=== PATIENT | female | born 1990 | race Caucasian/White ===

== ENCOUNTER 2017-02-15 11:50 | Emergency (ER) | payer OTHER ==
[~2017-02-15 11:50] MED LIST: ACETAMINOPHEN; AMBIEN PO; AMITRYPTYLINE PO; AMOXICILLIN PO; AMOXICILLIN500 M1 PO; ANXIETY MED; AUGMENTIN PO; BACTRIM DS TABL1 TA1 PO; BCP; BENADRYL25 M1 PO; BENZONATATE PO; CIPRO PO; CLARITIN10 MG PO; DEPO SHOT; E MYCIN OS; FLEXERIL10 MG PO; HYCODAN; HYDROCODONE; LAMICTAL PO; LODINE PO; MECLIZINE HCL12.5 M1 PO; MEDROL PO; MOTRIN PO; NEXIUM PO; NO MEDICATIONS; PERCOCET 5-3251 TAB PO; PHENERGAN DM; PHENERGAN PO; PHENERGAN25 MG PO; PYRIDIUM PO; SEROQUEL PO; SEROQUEL50 M1 PO; TYLENOL PM PO; VICODIN 5/500 T1 TAB PO; ZOLOFT PO; ZYRTEC5 MG PO; [UNRECOGNIZED DRUG - OTHER] PO; [UNRECOGNIZED DRUG - REMARK] PO
[2017-02-15 11:53] LABS: INFLUENZA A NEG (NEG); INFLUENZA B NEG (NEG)
== END 2017-02-15 12:09 | disposition home or self-care (01) ==
LOC: SED 11:50
PROVIDERS: Nurse Practitioner
DX: J03.90 Acute tonsillitis, unspecified (principal); J30.9 Allergic rhinitis, unspecified
CPT/HCPCS: 87651; 87804; 99282; 99283

== ENCOUNTER 2017-05-15 12:13 | Emergency (ER) | payer OTHER ==
--- NOTE | ~2017-05-15 | CT4 ---
[facility] A Service of [facility] RADIOLOGY TEXT RESULTS PATIENT: MARYANN MCGILL LOCATION: SED : 88 UNIT #: [id number] AGE: [address]: KASHMIR GRAY SEX: F ORDER DR: [id number] [address] [id number] E MR#: [id number] #: [id number] NAME: MARYANN MCGILL. : 1990 SEX: F STUDY DATE/TIME: 05/15/2017 15:06 UNIT: SED ROOM: STUDY DESCRIPTION: CT Abd and Pelv Wo Cont Ordering Physician: Kashmir Gray MEDICAL IMAGING REPORT This report is preliminary unless electronic signature is present. EXAM Abdomen and pelvis CT without contrast HISTORY Chronic pelvic infection over the past 2 months. TECHNIQUE Axial images were obtained without contrast. This CT exam was performed with one or more of the following radiation dose reduction techniques: automatic exposure control, adjustment of mA and/or kV according to patient size, and iterative reconstruction. COMPARISON STUDIES 09/14/2010. FINDINGS The lung bases are clear with no lung infiltrates noted. The liver, spleen and pancreas are normal in size. The kidneys and adrenals have a normal appearance. There is no evidence of retroperitoneal adenopathy or ascites. No distended bowel loops are seen. In the pelvis, there is no evidence of adenopathy, mass or fluid collection. The ovaries are normal in size. IMPRESSION Negative abdomen and pelvis CT. Dictated by... Deangelo Menon M.D. [facility] A Service of [facility] RADIOLOGY TEXT RESULTS PATIENT: MARYANN MCGILL LOCATION: SED : [birth year] UNIT #: [id number] AGE: [address]: KASHMIR GRAY SEX: F ORDER DR: THIS IS AN ELECTRONICALLY VERIFIED REPORT Deangelo Menon M.D. at 05/15/2017 5:10 PM RLF/pcl TD: 05/15/2017 16:53 JOB #: [id number] MEDICAL IMAGING REPORT Page 1 of 1
[2017-05-15] MEDS ORDERED: BENADRYL25 M3 (12:18)
[2017-05-15 13:22] LABS: URINE SOURCE CLEAN CATCH
[2017-05-15 13:26] LABS: URINE APPEARANCE CLEAR; URINE BILIRUBIN NEG (NEG); URINE BLOOD 2+ (NEG); URINE COLOR YELLOW; URINE GLUCOSE NEG (NORM); URINE KETONE NEG (NEG); URINE LEUKOCYTE ESTERASE NEG (NEG); URINE NITRATE NEG (NEG); URINE PH 5.5 (5-8); URINE PROTEIN NEG (NEG); URINE SPECIFIC GRAVITY 1.025 (1.003-1.035); URINE UROBILINOGEN 0.2 MG/DL (NORM)
[2017-05-15 13:27] LABS: MICRO INDICATED? YES
[2017-05-15 13:35] LABS: CULTURE INDICATED? YES; URINE BACTERIA 1+ (NEG); URINE RBC 0-2 /[HPF] (0-2); URINE SQUAMOUS EPITHELIAL CELL OCCAS /[HPF]; URINE WBC 0-2 /[HPF] (0-5)
[2017-05-16 19:53] LABS: CHLAMYDIA TRACH Not Detected (Not Detected); N GONOR Not Detected (Not Detected)
== END 2017-05-15 15:56 | disposition home or self-care (01) ==
LOC: SED 12:13
PROVIDERS: Nurse Practitioner
DX: N76.0 Acute vaginitis (principal); A64 Unspecified sexually transmitted disease; E11.9 Type 2 diabetes mellitus without complications; Z90.49 Acquired absence of other specified parts of digestive tract
CPT/HCPCS: 74176; 81003; 84703; 87086; 87210; 87491; 87591; 87808; 87905; 96372; 99284; J0696